=== PATIENT | male | born 1950 | race Caucasian/White ===

== ENCOUNTER 2017-10-26 15:54 | Emergency (ER) | payer OTHER ==
[2017-10-26 16:23] VITALS: BP 118/76; PULSE 75; TEMP 97.6; BMI 21.7
--- NOTE | 2017-10-26 16:23 | PDOC ---
Rapid Medical Evaluation Time Seen by Provider: 10/26/17 16:19 Medical Evaluation: Allergies Allergy/AdvReac Type Severity Reaction Status Date / Time No Known Allergies Allergy Verified 10/26/17 16:19 10/26/17 16:20 I have performed a brief in-person evaluation of this patient. The patient presents with a chief complaint of: sent from PCP (Dr. Martell-- ) for elevated FS of 400 and ketones in urine Pertinent physical exam findings: I have ordered the following: CBC, BMP, VBG, UA, serum acetone The patient will proceed to the ED for further evaluation.
[2017-10-26 17:08] LABS: HEMOGLOBIN 13.4 GM/dL (11.7-16.9); MCH 33.5 pg (25.7-33.7); MCHC 34.3 g/dl (32.0-35.9); MEAN CELL VOLUME 97.5 fl (80-96); MEAN PLT VOLUME 9.9 fl (7.5-11.1); PLATELET COUNT 192 K/MM3 (134-434); RDW 12.6 % (11.9-15.9); WHITE BLOOD COUNT 6.3 K/mm3 (4.0-10.0)
[2017-10-26 17:08] LABS: URINE APPEARANCE CLEAR; URINE BILIRUBIN NEGATIVE (<2.0 mg/dL); URINE COLOR LTYELLOW; URINE GLUCOSE (UA) 3+ (NEGATIVE); URINE KETONE 1+ (NEGATIVE); URINE LEUK ESTERASE NEGATIVE (NEGATIVE); URINE NITRITE NEGATIVE (NEGATIVE); URINE PROTEIN NEGATIVE (NEGATIVE); URINE UROBILINOGEN NEGATIVE mg/dL (0.2-1.0)
[2017-10-26 17:17] LABS: VENOUS PC02 54.6 mmHg (38-52); VENOUS PH 7.37 (7.32-7.42); VENOUS PO2 22.7 mmHg (28-48)
[2017-10-26 17:33] LABS: ANION GAP 6 (8-16); BLOOD UREA NITROGEN 16 mg/dL (7-18); CALCIUM 9.5 mg/dL (8.5-10.1); CHLORIDE 102 mmol/L (98-107); CO2 29 mmol/L (21-32); CREATININE 0.9 mg/dL (0.7-1.3); POTASSIUM 4.5 mmol/L (3.5-5.1); SODIUM 137 mmol/L (136-145)
[2017-10-26 17:37] LABS: GLUCOSE,RANDOM 311 mg/dL (74-106)
[2017-10-26 17:46] LABS: ACETONE SERUM NEGATIVE (NEGATIVE)
--- NOTE | 2017-10-26 18:55 | PDOC ---
History of Present Illness - General Chief Complaint: Blood Sugar Problem Stated Complaint: BLOOD SUGAR PROBLEMS Time Seen by Provider: 10/26/17 16:19 History Source: Patient Exam Limitations: No Limitations - History of Present Illness Initial Comments: This is a 67 YOM with h/o NIDDM (on two oral antihyperglycemics at home including Januvia and Glipizide; states occasionally does not take his medications, states adherent and normal measures his home BG to be in the 200s) who was sent by his PCP Dr. Martell for fingerstick glucose of 400 and ketones in the urine which concerned them for DKA. The patient himself notes no symptoms recently except for right posterior shoulder pain which he attributes to a recent minimally traumatic fall. He denies any fever, chills, nausea, vomiting, diarrhea, constipation, cough, congestion runny nose, headache, neck pain, back pain, numbness, tingling, generalized or focal weakness, difficulty or painful urination, or other symptoms. He has a good supply of his medications at home. He reports never having complications with his diabetes. Past History - Past Medical History Allergies/Adverse Reactions: Allergies Allergy/AdvReac Type Severity Reaction Status Date / Time No Known Allergies Allergy Verified 10/26/17 16:19 Home Medications: Ambulatory Orders Sitagliptin Phosphate [Januvia] 0 mg PO DAILY 10/26/17 COPD: No Diabetes: Yes (NIDDM) - Suicide/Smoking/Psychosocial Hx Smoking History: Never smoked Have you smoked in the past 12 months: No Information on smoking cessation initiated: No Hx Alcohol Use: No Drug/Substance Use Hx: No Substance Use Type: None Review of Systems - Review of Systems Able to Perform ROS?: Yes Constitutional: No: Chills, Fever, Unexplained wgt Loss HEENTM: No: Nose Congestion, Throat Pain Respiratory: No: Cough, Shortness of Breath Cardiac (ROS): No: Chest Pain, Palpitations ABD/GI: No: Constipated, Diarrhea, Nausea, Vomiting : No: Burning, Dysuria Musculoskeletal: Yes: Other (right shoulder pain). No: Back Pain, Neck Pain Integumentary: No: Bruising, Rash Neurological: No: Headache, Numbness, Tingling, Weakness, Dizziness Endocrine: No: Unexplained Weight Gain, Unexplained Weight Loss *Physical Exam - Vital Signs Last Vital Signs Temp Pulse Resp BP Pulse Ox 97.6 F 75 18 118/76 100 10/26/17 16:19 10/26/17 16:19 10/26/17 16:19 10/26/17 16:19 10/26/17 16:19 - Physical Exam General Appearance: Yes: Nourished, Appropriately Dressed, Other (nontoxic and well appearing adult male in no distress, Portuguese speaking, answering questions appropriately). No: Apparent Distress HEENT: positive: EOMI, ALEJANDRINA, Normal ENT Inspection, Normal Voice, Hearing Grossly Normal. negative: Scleral Icterus (R), Scleral Icterus (L), Nasal Congestion Neck: positive: Trachea midline, Supple. negative: Tender, Rigid Respiratory/Chest: positive: Lungs Clear, Normal Breath Sounds. negative: Respiratory Distress, Crackles, Rhonchi, Stridor, Wheezing Cardiovascular: positive: Regular Rhythm, Regular Rate, S1, S2. negative: Edema , JVD, Murmur Gastrointestinal/Abdominal: positive: Normal Bowel Sounds, Flat, Soft. negative : Tender, Organomegaly, Pulsatile Mass, Guarding Musculoskeletal: positive: Normal Inspection. negative: Decreased Range of Motion, Vertebral Tenderness Extremity: positive: Normal Capillary Refill, Normal Inspection, Normal Range of Motion, Other (right shoulder minimal pain on opposition but full ROM, nontender, no signs of trauma). negative: Tender, Cyanosis Integumentary: positive: Normal Color, Dry, Warm. negative: Erythema, Rash, Bruising Neurologic: positive: outsoles channel opener II-XII NML intact (grossly), Fully Oriented, Alert, Normal Mood/Affect, Normal Response, Motor Strength 5/5 ED Treatment Course - LABORATORY CBC & Chemistry Diagram: 10/26/17 17:02 10/26/17 17:02 - ADDITIONAL ORDERS Additional order review: Laboratory Results 10/26/17 10/26/17 10/26/17 17:02 17:02 16:40 VBG pH 7.37 POC VBG pCO2 54.6 H POC VBG pO2 22.7 L Mixed VBG HCO3 30.5 H Sodium 137 Potassium 4.5 Chloride 102 Carbon Dioxide 29 Anion Gap 6 L BUN 16 Creatinine 0.9 Creat Clearance w eGFR > 60 Random Glucose 311 H* D Calcium 9.5 Urine Color Ltyellow Urine Appearance Clear Urine pH 5.0 Ur Specific [place] 1.035 Urine Protein Negative Urine Glucose (UA) 3+ H Urine Ketones 1+ H Urine Blood Negative Urine Nitrite Negative Urine Bilirubin Negative Urine Urobilinogen Negative Ur Leukocyte Esterase Negative Acetone, Qual Negative 10/26/17 17:02 RBC 4.00 MCV 97.5 H MCHC 34.3 RDW 12.6 MPV 9.9 Medical Decision Making - Medical Decision Making Pt with DM p/w hyperglycemia without AMS, polydipsia, abdominal pain, or other symptoms. Initial Vital Signs Temp Pulse Resp BP Pulse Ox 97.6 F 75 18 118/76 100 10/26/17 16:19 10/26/17 16:19 10/26/17 16:19 10/26/17 16:19 10/26/17 16:19 Exam: Well appearing, benign heart/lung/abdomen/neuro/skin exams DDX IBNLT: simple hyperglycemia (e.g. non-adherence, stress hyperglycemia, etc) , HHS, DKA, alcoholic ketosis, starvation ketosis, drug-induced acidosis, salicylate toxicity, uremic acidosis, possible provoking factors non-adherence, infection/inflammation/sepsis (i.e. UTI/pyelonephritis, PNA, bronchitis, skin infection, pancreatitis, etc), EtOH or drug use, ACS, CVA/TIA, renal failure, etc. W/U ordered: CBCD CMP Serum Acetone VBG UA TX ordered: None Laboratory Tests 10/26/17 10/26/17 10/26/17 16:40 17:02 17:02 WBC 6.3 RBC 4.00 Hgb 13.4 Hct 39.0 MCV 97.5 H MCH 33.5 MCHC 34.3 RDW 12.6 Plt Count 192 MPV 9.9 VBG pH POC VBG pCO2 POC VBG pO2 Mixed VBG HCO3 Sodium 137 Potassium 4.5 Chloride 102 Carbon Dioxide 29 Anion Gap 6 L BUN 16 Creatinine 0.9 Creat Clearance w eGFR > 60 Random Glucose 311 H* D Calcium 9.5 Urine Color Ltyellow Urine Appearance Clear Urine pH 5.0 Ur Specific [place] 1.035 Urine Protein Negative Urine Glucose (UA) 3+ H Urine Ketones 1+ H Urine Blood Negative Urine Nitrite Negative Urine Bilirubin Negative Urine Urobilinogen Negative Ur Leukocyte Esterase Negative Acetone, Qual Negative 10/26/17 17:02 WBC RBC Hgb Hct MCV MCH MCHC RDW Plt Count MPV VBG pH 7.37 POC VBG pCO2 54.6 H POC VBG pO2 22.7 L Mixed VBG HCO3 30.5 H Sodium Potassium Chloride Carbon Dioxide Anion Gap BUN Creatinine Creat Clearance w eGFR Random Glucose Calcium Urine Color Urine Appearance Urine pH Ur Specific [place] Urine Protein Urine Glucose (UA) Urine Ketones Urine Blood Urine Nitrite Urine Bilirubin Urine Urobilinogen Ur Leukocyte Esterase Acetone, Qual Reassessment: Appears well, continues to have no symptoms, wants to go home. Workup is not concerning for emergency-level pathology at this time. The Pt is appropriate for discharge with close outpatient follow up. They are comfortable with this plan and will follow up with their PCP in 1-3 days. At patient's request orthopedic referral information is given. Specific return precautions are discussed and they will come back to the ER if necessary. *DC/Admit/Observation/Transfer Diagnosis at time of Disposition: Hyperglycemia Diabetes mellitus Qualifiers: Diabetes mellitus type: other specified (including KENNA) Diabetes mellitus mash grinder insulin use: unspecified mash grinder insulin use status Diabetes mellitus complication status: with hyperglycemia Qualified Code(s): E13.65 - Other specified diabetes mellitus with hyperglycemia - Discharge Dispostion Disposition: HOME Condition at time of disposition: Stable Decision to Admit order: No - Referrals Referrals: Maxwell Stout MD [Staff Physician] - - Patient Instructions Printed Discharge Instructions: DI for Hyperglycemia -- Adult Additional Instructions: You were seen in the ER for high blood sugar. We did blood and urine laboratories, imaging studies, and an electrocardiogram, and there was nothing detected on this workup that requires admission to the hospital. After our assessment, we do not believe you are having a medical emergency at this time, and we believe you are safe to go home. Please take all your diabetes medications as prescribed. Letting your blood sugar go too high or too low can be very dangerous and can result in severe confusion/coma/ in the short term, and heart/kidney/vascular complications in the [place] [facility]. Please follow up with your regular PCP doctor in 1-3 days. Call their clinic as soon as possible, tell them you were seen in the ER, and tell them you need an appointment. If you have any new or worsening symptoms, especially inability to control your blood sugars, loss of consciousness, excessive thirst or urination , abdominal pain, or other symptoms, please come back to the ER at any time (24 hours a day). If you are having severe or life threatening symptoms, or symptoms that make it unsafe to drive or have someone drive you, please call 911. Usted fue visto en la eva de urgencias por niveles altos de azcar en la kelsie. Hicimos laboratorios de kelsie y orina, estudios de imgenes y un electrocardiograma, y ??no se detect nada en elie estudio que requiera ingreso al hospital. Despus de nuestra evaluacin, no creemos que est teniendo oskar emergencia mdica en elie momento, y creemos que est seguro de irse a casa. Por favor, tome todos milo medicamentos para la diabetes segn lo recetado. Dejar que el nivel de azcar en la kelsie suba o baje demasiado puede ser muy peligroso y provocar confusin / coma / muerte graves a corto plazo y complicaciones cardacas / renales / vasculares a robin plazo. Realice un seguimiento con donato mdico PCP regular en 1-3 nieto. Llame a donato clnica lo antes posible, dgales que lo vieron en la eva de emergencias y dgales que necesita oskar helen. Si tiene sntomas nuevos o que empeoran, especialmente la incapacidad para controlar milo niveles de azcar en la kelsie, prdida de conocimiento, sed excesiva u orina, dolor abdominal u otros sntomas, vuelva a la eva de emergencias en cualquier momento (las 24 horas del da). Si tiene sntomas graves o que amenazan la clemente, o sntomas que hacen que sea inseguro conducir o que alguien lo lleve, llame al 911. Print Language: SERBIAN - Post Discharge Activity
--- NOTE | 2017-10-26 19:36 | PDOC ---
Attending Attestation - Resident Resident Name: ScottTeresa - ED Attending Attestation I have performed the following: I have examined & evaluated the patient, The case was reviewed & discussed with the resident, I agree w/resident's findings & plan, Exceptions are as noted - HPI HPI: 10/26/17 19:30 67 yo male sent by his PCP because of hyperglycemia - Physicial Exam PE: 10/26/17 19:36 slender 67 yo male , no distress head ncat neck supple lungs cta b.\/l cvs [id number] abd flat,nontender neuro axox3,moving all extremities, - Medical Decision Making 10/26/17 19:43 labs done here reveal NEGATIVE acetome, [id number] - pt admits he is noncomplaint w his meds -no vomiting,no resp distress discharged homw and told to take his medication for his diabetes
== END 2017-10-26 19:58 | disposition home or self-care (01) ==
LOC: JER 15:54
DX: E11.65 Type 2 diabetes mellitus with hyperglycemia (principal); M25.511 Pain in right shoulder; W19.XXXA Unspecified fall, initial encounter; Y93.89 Activity, other specified; Y92.89 Other specified places as the place of occurrence of the external cause; Y99.8 Other external cause status; Z91.14 Patient's other noncompliance with medication regimen
CPT/HCPCS: 36415; 80048; 81003; 82009; 82803; 85027; 99283-25

== ENCOUNTER 2018-08-29 19:20 | Emergency (ER) | payer MEDICARE, OTHER ==
[2018-08-29 19:40] VITALS: BP 154/90; PULSE 77; TEMP 97.3; BMI 21.4
--- NOTE | 2018-08-29 20:54 | PDOC ---
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#[id number]) Past History - Past Medical History Allergies/Adverse Reactions: Allergies Allergy/AdvReac Type Severity Reaction Status Date / Time No Known Allergies Allergy Verified 10/26/17 16:19 Home Medications: Ambulatory Orders Sitagliptin Phosphate [Januvia] 0 mg PO DAILY 10/26/17 COPD: No Diabetes: Yes (NIDDM) - Suicide/Smoking/Psychosocial Hx Smoking History: Never smoked Have you smoked in the past 12 months: No Hx Alcohol Use: Yes (1x/month) Drug/Substance Use Hx: No Substance Use Type: None *Physical Exam - Vital Signs Last Vital Signs Temp Pulse Resp BP Pulse Ox 97.3 F L 77 18 154/90 97 08/29/18 19:38 08/29/18 19:38 08/29/18 19:38 08/29/18 19:38 08/29/18 19:38 - Physical Exam General Appearance: No: Apparent Distress HEENT: positive: Other (+around 3x2 cm hematoma along L inner buccal mucosa, no active bleeding, no cracked teeth) Respiratory/Chest: positive: Lungs Clear, Normal Breath Sounds. negative: Respiratory Distress Cardiovascular: positive: Regular Rhythm, Regular Rate, S1, S2. negative: Murmur Integumentary: positive: Normal Color Neurologic: positive: Alert, Normal Mood/Affect Medical Decision Making - Medical Decision Making 68 y/o M hx of DM presents with "swelling" inside mouth which occurred around 20 minutes ago. States he had a small piece of meat to eat and then had some bleeding in his mouth. When he went to check it out, he noticed swelling inside the mouth. Denies taking any blood thinners. Denies fever, sob, cp, sore throat Will need further evaluation by oral surgeon Seen with Dr. Israel 08/29/18 20:51 *DC/Admit/Observation/Transfer Diagnosis at time of Disposition: Lesion of buccal mucosa - Discharge Dispostion Disposition: HOME Condition at time of disposition: Stable Decision to Admit order: No - Referrals - Patient Instructions Additional Instructions: Thank you for choosing [facility]. It was a pleasure taking care of you. Please go to an oral surgeon for evaluation of this. Avoid chewing along the left side of mouth for now Follow-up with your regular doctor as well in 2-3 days Return to the Emergency Department if your symptoms worsen or persist or have other concerning symptoms. Rita por elegir el [facility]. Fue un placer cuidar de ti. Por favor, vaya a un cirujano oral para evaluar esto. Evite masticar a lo robin del lado colt de la boca por ahora Caprice un seguimiento con donato mdico habitual tambin en 2-3 nieto. Regrese al Departamento de Emergencias si milo sntomas empeoran o persisten o si tiene otros sntomas relacionados. - Post Discharge Activity
== END 2018-08-29 21:08 | disposition home or self-care (01) ==
LOC: JERFT 19:20
DX: K13.79 Other lesions of oral mucosa (principal)
CPT/HCPCS: 99281-25

== ENCOUNTER 2019-12-31 10:57 | Emergency (ER) | payer OTHER ==
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
[2019-12-31] MEDS ORDERED: LACTATED RINGERS SOLUTION 1,000 ML/1,000 ML INFUS.BAG IV SCH (12:00)
[2019-12-31] MEDS ORDERED: ceFAZolin 2 GRAM PREMIX BAG IVPB ONE (12:05)
[2019-12-31] MEDS ORDERED: DIPHTH,PERTUSS(ACELL),TET 0.5 ML DISP.SYRIN IM ONE ×2 (12:05→12:51)
[2019-12-31] MEDS ORDERED: FLUORESCEIN NA 1 EA STRIP ONE (12:07)
[2019-12-31] MEDS ORDERED: FLUORESCEIN NA 1 EA STRIP OU ONE (12:07)
[2019-12-31] MEDS ORDERED: TETRACAINE 0.5% OPHTH SOLN 2 ML BOTTLE ONE (12:07)
[2019-12-31] MEDS ORDERED: TETRACAINE 0.5% HCL 0.6ML DROPPER.BOTTLE OU ONE (12:07)
[2019-12-31 12:15] LABS: BASO % 0.4 % (0-2.0); EOS % 0.9 % (0-4.5); HEMATOCRIT 41.1 % (35.4-49); HEMOGLOBIN 13.8 GM/dL (11.7-16.9); LYMPH % 13.5 % (8-40); MCH 33.7 pg (25.7-33.7); MCHC 33.6 g/dl (32.0-35.9); MEAN CELL VOLUME 100.3 fl (80-96); MEAN PLT VOLUME 9.4 fl (7.5-11.1); MONO % 5.2 % (3.8-10.2); PLATELET COUNT 194 K/MM3 (134-434); RDW 12.4 % (11.9-15.9); WHITE BLOOD COUNT 7.9 K/mm3 (4.0-10.0)
[2019-12-31] MEDS ORDERED: CEFAZOLIN 2 GM/D5W 2 GM/50 ML ML IVPB ONE (12:48)
[2019-12-31] MEDS ORDERED: BACITRACIN 15 GM TUBE TOPICAL OINTMENT ONE (12:51)
[2019-12-31 12:53] LABS: BILIRUBIN,TOTAL 0.6 mg/dL (0.2-1); BLOOD UREA NITROGEN 21.1 mg/dL (7-18); CALCIUM 9.6 mg/dL (8.5-10.1); CREATININE 0.9 mg/dL (0.55-1.3); POTASSIUM 4.6 mmol/L (3.5-5.1); TOT PROT 7.4 g/dl (6.4-8.2)
[2019-12-31 15:43] VITALS: BP 135/85; PULSE 82; TEMP 98.2
== END 2019-12-31 15:00 | disposition short-term general hospital (02) ==
LOC: JER 10:57
PROC: 3E0234Z Introduction of Serum, Toxoid and Vaccine into Muscle, Percutaneous Approach (ICD-10-PCS; principal; 2019-12-31)
PROC: 3E0233Z Introduction of Anti-inflammatory into Muscle, Percutaneous Approach (ICD-10-PCS; 2019-12-31)
DX: T20.00XA Burn of unspecified degree of head, face, and neck, unspecified site, initial encounter (principal)
CPT/HCPCS: 36415; 80053; 85025; 90471; 90715; 96374; 99284-25

== ENCOUNTER 2022-05-26 14:55 | Emergency (ER) | payer OTHER ==
[2022-05-26 15:13] VITALS: PULSE 71; BMI 22.2
[2022-05-26] MEDS ORDERED: LIDOCAINE 5% TOPICAL PATCH TP ONE (16:32)
[2022-05-26 16:43] VITALS: BP 156/60; RESP 21; TEMP 97.8
[2022-05-26] MEDS ORDERED: LIDOCAINE PATCH REMOVAL MC SCH (22:00)
== END 2022-05-26 17:48 | disposition home or self-care (01) ==
LOC: JER 14:55
DX: R07.81 Pleurodynia (principal)
CPT/HCPCS: 71101-TC-RT-FY; 99283-25

== ENCOUNTER 2023-01-11 20:31 | Emergency (ER) | payer OTHER ==
[2023-01-11 20:42] VITALS: BP 140/79; PULSE 85; RESP 16; TEMP 97.6; BMI 22.9
== END 2023-01-11 23:18 | disposition home or self-care (01) ==
LOC: JER 20:31
DX: F10.920 Alcohol use, unspecified with intoxication, uncomplicated (principal)
CPT/HCPCS: 70450-TC; 99284-25

== ENCOUNTER 2023-08-10 14:04 | Emergency (ER) | payer OTHER ==
[2023-08-10 14:12] VITALS: BP 129/62; PULSE 82; RESP 18; TEMP 98; BMI 19.9
[2023-08-10 15:56] LABS: BASO % 0.5 % (0-2.0); HEMOGLOBIN 13.1 GM/dL (11.7-16.9); LYMPH % 16.9 % (8-40); MCHC 33.5 g/dl (32.0-35.9); MEAN CELL VOLUME 104.3 fl (80-96); MEAN PLT VOLUME 9.1 fl (7.5-11.1); MONO % 7.9 % (3.8-10.2); NEUT % 73.7 % (42.8-82.8); PLATELET COUNT 222 10^3/uL (134-434); RBC 3.74 M/mm3 (4.00-5.60); RDW 12.8 % (11.9-15.9); VENOUS O2 SATURATION 54.3 % (70-80); VENOUS PCO2 46.8 mmHg (38-52); VENOUS PH 7.317 (7.310-7.410); WHITE BLOOD COUNT 5.8 K/mm3 (4.0-10.0)
[2023-08-10] MEDS: LACTATED RINGERS SOLUTION 1000 ML INFUS.BAG IV ONE (16:00)
[2023-08-10 16:20] LABS: POTASSIUM 4.6 mmol/L (3.5-5.1)
[2023-08-10 16:22] LABS: CALCIUM 9.7 mg/dL (8.5-10.1)
[2023-08-10 16:23] LABS: ALBUMIN 3.8 g/dl (3.4-5.0); BLOOD UREA NITROGEN 22.6 mg/dL (7-18)
[2023-08-10 16:28] LABS: BILIRUBIN,TOTAL 0.6 mg/dL (0.2-1)
[2023-08-10 17:21] LABS: PH,URINE 5.5 (5.0-8.0); URINE APPEARANCE CLEAR; URINE BILIRUBIN NEGATIVE (NEGATIVE); URINE COLOR YELLOW; URINE GLUCOSE (UA) 3+ (NEGATIVE); URINE KETONE 1+ (NEGATIVE); URINE LEUK ESTERASE NEGATIVE (NEGATIVE); URINE NITRITE NEGATIVE (NEGATIVE); URINE PROTEIN NEGATIVE (NEGATIVE); URINE UROBILINOGEN 0.2 mg/dL (0.2-1.0)
== END 2023-08-10 19:25 | disposition home or self-care (01) ==
LOC: JER 14:04
DX: E11.65 Type 2 diabetes mellitus with hyperglycemia (principal); R53.1 Weakness; R35.0 Frequency of micturition; Z79.84 Long term (current) use of oral hypoglycemic drugs
CPT/HCPCS: 36415; 80053; 81003; 82010; 82803; 82962; 85025; 87086; 93005; 93010; 99284-25